=== PATIENT | female | born 1990 | race Caucasian/White ===

== ENCOUNTER 2017-11-02 13:17 | Emergency (ER) | payer MEDICARE, MEDICAID ==
[2017-11-02] MEDS ORDERED: HUMULIN R 100 UNIT/ML VIAL SC ONE (13:18)
--- NOTE | 2017-11-02 13:42 | Emergency Department Record ---
History of Present Illness - General Chief Complaint: Difficulty Breathing Stated Complaint: JANIS Time Seen by Provider: 11/02/17 13:24 Source: Patient Mode of Arrival: EMS - History of Present Illness Initial Comments: sahra SOB this am and and she developed anterior lower leg pain last night. 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 primary is Dr. Parker. Patient said she wants to go to [facility]. Patient denies a cough and denies a sore throat and denies vomiting and diarrhea and denies dysuria. Patient denies sex in years - Related Data Home Medications Medication Instructions Recorded Confirmed Last Taken Alprazolam [Xanax] 1 mg PO ASDIR 11/02/17 11/02/17 Unknown Aspirin 81 mg PO DAILY 11/02/17 11/02/17 11/02/17 Clonidine HCl [Catapres] 0.2 mg PO BID 11/02/17 11/02/17 11/02/17 Cranberry Conc/Ascorbic Acid 1 each PO DAILY 11/02/17 11/02/17 11/02/17 13:40 [Cranberry 6,000 mg Softgel] Folic Acid 0.4 mg PO ASDIR 11/02/17 11/02/17 11/02/17 Furosemide [Lasix] 40 mg PO DAILY 11/02/17 11/02/17 11/02/17 Garlic 1,500 mg PO DAILY 11/02/17 11/02/17 11/02/17 Hydralazine HCl 50 mg PO DAILY 11/02/17 11/02/17 11/02/17 Hydrocodone/Acetaminophen [[place] 1 each PO ASDIR 11/02/17 11/02/17 Unknown 5-325 Tablet] Labetalol HCl 200 mg PO DAILY 11/02/17 11/02/17 11/02/17 Lisinopril [Zestril] 40 mg PO DAILY 11/02/17 11/02/17 11/02/17 Magnesium Oxide [Magnesium] 250 mg PO DAILY 11/02/17 11/02/17 11/02/17 Montelukast Sodium [Singulair] 10 mg PO QHS 11/02/17 11/02/17 11/01/17 Pantoprazole Sodium 40 mg PO DAILY 11/02/17 11/02/17 11/02/17 Warfarin Sodium [Coumadin] 5 mg PO DAILY 11/02/17 11/02/17 11/02/17 Zolpidem Tartrate [Ambien] 5 mg PO QHS 11/02/17 11/02/17 Unknown Allergies Allergy/AdvReac Type Severity Reaction Status Date / Time Penicillins Allergy HIVES Verified 11/02/17 13:25 Review of Systems Reviewed: No additional complaints except as noted below Constitutional: Reports: As per HPI. Denies: Chills, Fever, Malaise, Night sweats, Weakness, Weight change Eyes: Reports: As per HPI. Denies: Eye discharge, Eye pain, Photophobia, Vision change ENT: Reports: As per HPI. Denies: Congestion, Dental pain, Ear pain, Epistaxis , Hearing loss, Throat pain Respiratory: Reports: As per HPI, Dyspnea. Denies: Cough, Hemoptysis, Stridor, Wheezes Cardiovascular: Reports: As per HPI. Denies: Arrhythmia, Chest pain, Dyspnea on exertion, Edema, Murmurs, Orthopnea, Palpitations, Paroxysmal nocturnal dyspnea, Rheumatic Fever, Syncope Endocrine: Reports: As per HPI. Denies: Fatigue, Heat or cold intolerance, Polydipsia, Polyuria Gastrointestinal: Reports: As per HPI. Denies: Abdominal pain, Constipation, Diarrhea, Hematemesis, Hematochezia, Melena, Nausea, Vomiting Genitourinary: Reports: As per HPI. Denies: Abnormal menses, Discharge, Dyspareunia, Dysuria, Frequency, Hematuria, Incontinence, Retention, Urgency Musculoskeletal: Reports: As per HPI. Denies: Arthralgia, Back pain, Gout, Joint swelling, Myalgia, Neck pain Skin: Reports: As per HPI. Denies: Bruising, Change in color, Change in hair/ nails, Lesions, Pruritus, Rash Neurological: Reports: As per HPI. Denies: Abnormal gait, Confusion, Headache, Numbness, Paresthesias, Seizure, Tingling, Tremors, Vertigo, Weakness Psychiatric: Reports: As per HPI. Denies: Anxiety, Auditory hallucinations, Depression, Homicidal thoughts, Suicidal thoughts, Visual hallucinations Hematological/Lymphatic: Reports: As per HPI. 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 no activity x's 4 years) Hx Weakness: Yes (generalized) Comment:: many silent strokes - GI Hx GI Disorders: Yes Hx Reflux: Yes Hx Nausea/Vomiting: Yes (after dialysis) - Hx Genitourinary Disorders: Yes Hx Dialysis: Yes (3 times a week) Hx Renal Disease: Yes Comment:: 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 - ENDOCRINE Hx Endocrine Disorders: No - MUSCULOSKELETAL Hx Musculoskeletal Disorders: Yes Hx Fibromyalgia: Yes - PSYCH Hx Psych Problems: Yes Hx Anxiety: Yes Hx Depression: Yes - HEMATOLOGY/ONCOLOGY Hx Hematology/Oncology Disorders: Yes Hx Anemia: Yes 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) Hx Clotting Problems: Yes Comment:: phoresis and platelet infusion Family Medical History Family Hx Comment (NOT TO BE USED IN PLACE OF ITEMS BELOW): sister lupus and a sister with MS Hx Diabetes: Grandparents Hx Heart Disease: Father, Mother, Grandparents Physical Exam - General General Appearance: Alert, Oriented x3, Cooperative, Mild distress, Other ( slurred speech) - Head Head exam: Normal inspection - Eye Eye exam: Normal appearance, PERRL Pupils: Normal accommodation - ENT ENT exam: Normal exam, Mucous membranes moist, Normal external ear exam, Normal orophraynx, TM's normal bilaterally Ear exam: Normal external inspection. negative: External canal tenderness Nasal Exam: Normal inspection. negative: Discharge, Sinus tenderness Mouth exam: Normal external inspection, Tongue normal Teeth exam: Normal inspection. negative: Dental caries Throat exam: Normal inspection. negative: Tonsillar erythema, Tonsillar exudate - Neck Neck exam: Normal inspection, Full ROM. negative: Tenderness - Respiratory Respiratory exam: Normal lung sounds bilaterally. negative: Respiratory distress - Cardiovascular Cardiovascular Exam: Regular rate, Normal rhythm, Normal heart sounds - GI/Abdominal GI/Abdominal exam: Soft, Normal bowel sounds. negative: Tenderness - Rectal Rectal exam: Deferred - exam: Deferred - Extremities Extremities exam: Normal inspection, Full ROM, Normal capillary refill. negative: Tenderness - Back Back exam: Reports: Normal inspection, Full ROM. Denies: Muscle spasm, Rash noted, Tenderness - Neurological Neurological exam: Alert, Normal gait, Oriented X3, Reflexes normal - Psychiatric Psychiatric exam: Normal affect, Normal mood - Skin Skin exam: Dry, Intact, Normal color, Warm Course potassium 7.9 and K ekg normal - Reevaluation(s) Reevaluation #1: discussed casee with Dr. Warren and will transfer to [facility] via ambulance 11/02/17 15:47 Reevaluation #2: patient states she has a hemoglobin of 5.0, rectal exam neg for occult blood 11/02/17 15:58 Medical Decision Making - Data Complexity MDM Data: Labs Ordered and/or Reviewed (trop t 0.177. d dimer elevated , on coumadin therapy INR 1.7), X-Ray Ordered and/or Reviewed (lower leg xray neg) - Lab Data Result diagrams: 11/02/17 15:06 11/02/17 15:06 Disposition Clinical Impression: Hyperkalemia, Troponin level elevated, Blood disease, History of DVT (deep vein thrombosis), History of Coumadin therapy, D-dimer, elevated Renal failure (ARF), acute on chronic Qualifiers: Acute renal failure type: unspecified Chronic kidney disease stage: on chronic dialysis Qualified Code(s): N17.9 - Acute kidney failure, unspecified Anemia Qualifiers: Anemia type: unspecified type Qualified Code(s): D64.9 - Anemia, unspecified Disposition: Acute Care Hospital Transfer Condition: (3) Guarded Forms: Patient Portal Access Time of Disposition: 15:56 Quality - Quality Measures Quality Measures: N/A - Blood Pressure Screening Does Patient Have Any of the Following: No, Active Dx of HTN Blood Pressure Classification: Hypertensive Reading Systolic Measurement: 188 Diastolic Measurement: 129 Screening for High Blood Pressure: Patient Exclusion, Hx of HTN [G9744]
[2017-11-02 13:46] LABS: ARTERIAL BLD GAS O2 SATURATION 95.4 % (95-98); ARTERIAL BLOOD GAS BASE EXCESS -13.5 mmol/L (-2 - 3); ARTERIAL BLOOD GAS HCO3 10.8 mmol/L (18-23); ARTERIAL BLOOD GAS pH 7.37 (7.35-7.45); CARBOXYHEMOGLOBIN 2.6 % (0-1.5); METHEMOGLOBIN 0.4 % (0.0-1.5); O2 HEMOGLOBIN 92.5 % vol (94-99); TOTAL HEMOGLOBIN 5.3 g/dl (11.6-16)
[2017-11-02 13:55] LABS: ARTERIAL BLOOD GAS PCO2 19.2 mmHg (35-48)
[2017-11-02 13:56] LABS: ALLEN TEST PASS
[2017-11-02] MEDS ORDERED: HYDROMORPHONE HCL 2 MG/ML VIAL IVP ONE (14:58)
[2017-11-02 15:02] LABS: URINE APPEARANCE CLEAR; URINE BILIRUBIN NEGATIVE (NEGATIVE); URINE BLOOD NEGATIVE (NEGATIVE); URINE COLOR YELLOW; URINE KETONE NEGATIVE (NEGATIVE); URINE LEUKOCYTE ESTERASE NEGATIVE (NEGATIVE); URINE NITRITE NEGATIVE (NEGATIVE); URINE PROTEIN 300 mg/dL (NEGATIVE); URINE UROBILINOGEN 0.2 E.U./dL (0.20 - 1.00)
[2017-11-02 15:09] LABS: AMPHETAMINE SCREEN URINE NOT DETECTED; BARBITURATE SCREEN URINE NOT DETECTED; BENZODIAZEPINE SCREEN URINE DETECTED; COCAINE SCREEN URINE NOT DETECTED; METHADONE SCREEN URINE NOT DETECTED; METHAMPHETAMINE SCREEN NOT DETECTED; OPIATE SCREEN URINE DETECTED; OXYCODONE SCREEN URINE NOT DETECTED; PHENCYCLIDINE SCREEN URINE NOT DETECTED; PROPOXYPHENE SCREEN URINE NOT DETECTED; THC SCREEN URINE DETECTED; TRICYCLIC ANTIDEPRESSANT SCRN NOT DETECTED
[2017-11-02 15:15] LABS: HEMATOCRIT 18.5 % (35.0-47.0); MEAN CELL VOLUME 93.4 fl (81-97); MEAN CORPUSCULAR HGB CONC 31.4 g/dl (32-36); MEAN PLATELET VOLUME 10.5 fl (7.4-10.4); PLATELET COUNT 245 K/uL (130-400); RED BLOOD COUNT 1.98 M/uL (3.80-5.40); RED CELL DISTRIBUTION WIDTH 16.5 % (11.5-14.5); WHITE BLOOD COUNT W/O DIFF 5.9 K/uL (4.2-12.2)
[2017-11-02 15:18] LABS: MEAN CORPUSCULAR HEMOGLOBIN 29.2 pg (27-33)
[2017-11-02 15:27] LABS: BILIRUBIN,TOTAL 0.5 mg/dL (0.2-1.0); CREATININE 13.8 mg/dL (0.5-0.9)
[2017-11-02] MEDS ORDERED: HYDRALAZINE HCL 25 MG TABLET PO ONE (15:27)
[2017-11-02 15:28] LABS: TOTAL PROTEIN 6.1 g/dL (6.6-8.7)
[2017-11-02 15:29] LABS: INR 1.7; PARTIAL THROMBOPLASTIN TIME 55.7 SECONDS (24.5-39.1); PROTHROMBIN TIME (PATIENT) 18.9 SECONDS (9.5-12.1)
[2017-11-02 15:32] LABS: ALB/GLOB RATIO 1.3 (1.1-1.8); ALBUMIN 3.5 g/dL (4.0-5.0)
[2017-11-02 15:34] LABS: ANISOCYTOSIS 1+; HYPOCHROMIA 2+; PLATELET ESTIMATE NORMAL (NORMAL)
[2017-11-02] MEDS ORDERED: SPS 15 GM/60 ML PO ONE (15:35)
[2017-11-02] MEDS ORDERED: DEXTROSE 50 % IVP 50 ML DISP.SYRIN IVP ONE (15:45)
[2017-11-02] MEDS ORDERED: HUMULIN R 100 UNIT/ML VIAL IV ONE (15:45)
[2017-11-02] MEDS ORDERED: CALCIUM GLUCONATE 100 MG in 0.9 % SODIUM CHLORIDE 100ML 100 ML IV ONE (15:45)
[2017-11-02 16:03] LABS: HEMOGLOBIN 5.8 gm/dl (11.6-16.0)
[2017-11-02 16:12] LABS: ABO GROUP B; ANTIBODY SCREEN NEGATIVE (NEGATIVE); RH TYPE POSITIVE
--- NOTE | 2017-11-03 09:29 | RADIOLOGY REPORT ---
EXAM: LEFT TIBIA AND FIBULA HISTORY: BRUISING IN THE ANTERIOR LEFT LEG. NO KNOWN INJURY. TECHNIQUE: AP and lateral views of the left tibia and fibula were obtained. Comparison: None. Encounter: Not applicable. FINDINGS: The bones are normal in appearance. There is no acute fracture or dislocation. There is no radiopaque foreign body or soft tissue air. IMPRESSION: NEGATIVE LEFT TIBIA AND FIBULA. JOB NUMBER: [id number] MTDD
--- NOTE | 2017-11-03 09:32 | RADIOLOGY REPORT ---
EXAM: CHEST, TWO VIEWS HISTORY: SHORTNESS OF BREATH TODAY. KNOWN RENAL FAILURE. TECHNIQUE: AP and lateral upright views of the chest were obtained. Comparison: None. FINDINGS: A dialysis catheter is in place on the right. The heart is enlarged. There is pulmonary vascular congestion and bilateral pulmonary infiltrates. There is minor blunting of the costophrenic angles consistent with small effusions. There is no pneumothorax. The bones appear intact. IMPRESSION: CARDIOMEGALY WITH PULMONARY VASCULAR CONGESTION, BILATERAL PULMONARY INFILTRATES , AND SMALL BILATERAL PLEURAL EFFUSIONS CONSISTENT WITH DEVELOPING CHF. [facility]BER: [id number] [facility]
== END 2017-11-02 16:49 | disposition short-term general hospital (02) ==
LOC: ER 13:17
DX: I13.2 Hypertensive heart and chronic kidney disease with heart failure and with stage 5 chronic kidney disease, or end stage renal disease (principal); N18.6 End stage renal disease; N17.9 Acute kidney failure, unspecified; R79.89 Other specified abnormal findings of blood chemistry; E87.6 Hypokalemia; D64.9 Anemia, unspecified; I50.9 Heart failure, unspecified; Z99.2 Dependence on renal dialysis; Z86.718 Personal history of other venous thrombosis and embolism; Z79.01 Long term (current) use of anticoagulants; F17.210 Nicotine dependence, cigarettes, uncomplicated
CPT/HCPCS: 99285 ×2; 96365; 96375; 85730; 85610; 82375; 80053; 81003; 82803; 81025; 82272; 80305; 84484; 85379; 85027; 86900; 86901; 86850; 71046; 73590; 36600; 93005; 93010; J1815; J1170

== ENCOUNTER 2017-11-11 13:03 | Emergency (ER) | payer MEDICARE, MEDICAID ==
[2017-11-11] MEDS ORDERED: HUMULIN R 100 UNIT/ML VIAL SC ONE (13:04)
--- NOTE | 2017-11-11 13:14 | Emergency Department Record ---
History of Present Illness - General Chief Complaint: Shortness of breath Stated Complaint: SHORTNESS OF BREATH Time Seen by Provider: 11/11/17 13:04 Source: Patient Mode of Arrival: Ambulatory Limitations: No limitations - History of Present Illness Initial Comments: 27 yo female with ESRD on dialysis presents with shortness of breath. She states her last dialysis was on Tuesday and was only a partial run. She did not go Tuesday because the lines at [facility] were too long. She feels puffy and short of breath. She presented on 11/02/17 with similar symptoms and was found to be hyperkalemic and anemic. Her renal specialist is at [facility]. MD Complaint: Shortness of breath -: Days(s) Severity: Moderate Quality: Other Consistency: Constant Improves With: Nothing Worsens With: Other (Missing dialysis several times) Known History Of: Other (ESRD) Context: Other - Related Data Allergies Allergy/AdvReac Type Severity Reaction Status Date / Time Penicillins Allergy HIVES Verified 11/11/17 13:13 Review of Systems Constitutional: Denies: Chills, Fever, Malaise, Weakness Eyes: Denies: Eye discharge ENT: Denies: Congestion, Throat pain Respiratory: Reports: Dyspnea Cardiovascular: Denies: Chest pain, Palpitations, Syncope Endocrine: Reports: Fatigue Gastrointestinal: Denies: Abdominal pain, Diarrhea, Nausea, Vomiting Genitourinary: Denies: Discharge, Dysuria Musculoskeletal: Denies: Arthralgia, Back pain, Myalgia Skin: Reports: Rash (chronic skin changes). Denies: Bruising, Change in color Neurological: Reports: Weakness. 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 CVA 2006 - NEURO Hx Neuro Disorders: Yes Hx Dizziness: Yes (after dialysis) Hx Seizures: Yes (grand mal on meds no activity x's 4 years) Hx Weakness: Yes (generalized) Comment:: many silent strokes - GI Hx GI Disorders: Yes Hx Reflux: Yes Hx Nausea/Vomiting: Yes (after dialysis) - Hx Genitourinary Disorders: Yes Hx Dialysis: Yes (3 times a week) Hx Renal Disease: Yes Comment:: 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 - ENDOCRINE Hx Endocrine Disorders: No - MUSCULOSKELETAL Hx Musculoskeletal Disorders: Yes Hx Fibromyalgia: Yes - PSYCH Hx Psych Problems: Yes Hx Anxiety: Yes Hx Depression: Yes - HEMATOLOGY/ONCOLOGY Hx Hematology/Oncology Disorders: Yes Hx Anemia: Yes 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 negative: Conjunctival injection - ENT ENT exam: Normal exam Ear exam: Normal external inspection Nasal Exam: Normal inspection Mouth exam: Normal external inspection - Neck Neck exam: Normal inspection - Respiratory Respiratory exam: Decreased breath sounds, Rales. negative: Normal lung sounds bilaterally, Respiratory distress - Cardiovascular Cardiovascular Exam: Regular rate, Normal rhythm, Normal heart sounds - GI/Abdominal GI/Abdominal exam: Soft. negative: Tenderness - Rectal Rectal exam: Deferred - exam: Deferred - Extremities Extremities exam: Pedal edema. negative: Joint swelling - Back Back exam: Reports: Normal inspection, Full ROM. Denies: Muscle spasm, Rash noted, Tenderness - Neurological Neurological exam: Alert, Normal gait, Oriented X3 - Psychiatric Psychiatric exam: Normal affect, Normal mood - Skin Skin exam: Other (scabs on the face) Course - Reevaluation(s) Reevaluation #1: EKG NSR rate 56, intervals Qtc 463, ST NS changes, axis normal 11/11/17 13:15 11/11/17 13:55 The CBC was reviewed The Hgb is 6.5 (prior was 5.8 on 11/02/17) 11/11/17 13:56 11/11/17 14:13 The INR was reviewed. 1.3 The lab was contacted. The K is 7.7 11/11/17 14:14 CXR demonstrated pulmonary vascular congestion. 11/11/17 14:18 Insulin, glucose, NaHCO3, Calcium Gluconate ordered One Call at [facility] for Nephrology and EM High dose Albuterol ordered and Laxis 11/11/17 14:21 AG is 26 HCO3 is 12 BUN 170 CR 10.3 11/11/17 14:27 Dr Balderrama of nephrology accepts the patient for transfer for emergency dialysis that is not offered at [facility] Dr Marinelli of the ED accepts the patient for transfer EMS will be contacted after stabilizing medications given 11/11/17 Medical Decision Making - Lab Data Result diagrams: 11/11/17 13:23 11/11/17 13:23 Critical Care Time Critical Care Time: Yes Total Critical Care Time: 85 Disposition Disposition: Transfer Clinical Impression: Anemia, Renal failure (ARF), acute on chronic, Hyperkalemia Disposition: Acute Care Hospital Transfer Transfer To: [facility] Reason For Transfer: ESRD,Hyperkalemia,volume overload Accepting Physician: Isis Time Discussed w/Accepting Physician: 14:25 Condition: (5) Critical Forms: Patient Portal Access Time of Disposition: 17:40 Quality - Quality Measures Quality Measures: N/A - Blood Pressure Screening Does Patient Have Any of the Following: Active Dx of HTN Blood Pressure Classification: Hypertensive Reading Systolic Measurement: 199 Diastolic Measurement: 133 Screening for High Blood Pressure: Patient Exclusion, Hx of HTN [G9744]
[2017-11-11 13:38] LABS: HEMATOCRIT 20.2 % (35.0-47.0); MEAN CELL VOLUME 92.2 fl (81-97); MEAN CORPUSCULAR HGB CONC 32.2 g/dl (32-36); MEAN PLATELET VOLUME 10.2 fl (7.4-10.4); PLATELET COUNT 216 K/uL (130-400); RED BLOOD COUNT 2.19 M/uL (3.80-5.40); RED CELL DISTRIBUTION WIDTH 15.6 % (11.5-14.5); WHITE BLOOD COUNT W/O DIFF 6.5 K/uL (4.2-12.2)
[2017-11-11 13:43] LABS: MEAN CORPUSCULAR HEMOGLOBIN 29.6 pg (27-33)
[2017-11-11 13:46] LABS: HEMOGLOBIN 6.5 gm/dl (11.6-16.0)
[2017-11-11 13:50] LABS: INR 1.3; PARTIAL THROMBOPLASTIN TIME 43.8 SECONDS (24.5-39.1); PROTHROMBIN TIME (PATIENT) 14.1 SECONDS (9.5-12.1)
[2017-11-11 13:52] LABS: CREATININE 10.6 mg/dL (0.5-0.9)
[2017-11-11] MEDS ORDERED: SODIUM BICARBONATE 50MEQ SYRINGE IVP ONE (14:14)
[2017-11-11] MEDS ORDERED: HUMULIN R 100 UNIT/ML VIAL IV ONE (14:14)
[2017-11-11] MEDS ORDERED: CALCIUM GLUCONATE 100 MG in 0.9 % SODIUM CHLORIDE 100ML 100 ML IV ONE (14:15)
[2017-11-11] MEDS ORDERED: FUROSEMIDE IV 40MG/4ML VIAL IVP ONE (14:27)
[2017-11-11] MEDS: DEXTROSE 50 % IVP 50 ML DISP.SYRIN IVP ONE ×2 (14:36→14:44)
[2017-11-11] MEDS: ALBUTEROL SULFATE (0.083%) 2.5 MG/3 ML NEB INH SCH ×2 (14:40→15:02)
[2017-11-11 15:00] LABS: ABO GROUP B; RH TYPE POSITIVE
[2017-11-11 15:01] LABS: ANTIBODY SCREEN NEGATIVE (NEGATIVE)
[2017-11-11] MEDS ORDERED: ALBUTEROL SULFATE (0.083%) 2.5 MG/3 ML NEB INH SCH (15:15)
[2017-11-11] MEDS ORDERED: SPS 15 GM/60 ML PO ONE (15:16)
--- NOTE | 2017-11-13 10:08 | RADIOLOGY REPORT ---
EXAM: CHEST 1 VIEW HISTORY: DYSPNEA. MISSED DIALYSIS APPOINTMENT THIS WEEK. TECHNIQUE: AP upright portable. COMPARISON: Two-view chest 11/02/17. FINDINGS: The right-sided multilumen venous catheter remains in place with no pneumothorax evident. Cardiomegaly again seen along with pulmonary venous hypertension and interstitial blurring as well as blunting of the costophrenic angles. These findings likely represent CHF/pulmonary edema currently and follow -up films are suggested, preferably upright PA and lateral, which clinically feasible. IMPRESSION: 1. FINDINGS CONSISTENT WITH CHF/PULMONARY EDEMA. 2. RIGHT-SIDED VENOUS CATHETER REMAINS IN PLACE, BEFORE. JOB NUMBER: [id number] MTDD
== END 2017-11-11 15:25 | disposition short-term general hospital (02) ==
LOC: ER 13:03
DX: I13.2 Hypertensive heart and chronic kidney disease with heart failure and with stage 5 chronic kidney disease, or end stage renal disease (principal); N18.6 End stage renal disease; I50.9 Heart failure, unspecified; N17.9 Acute kidney failure, unspecified; D64.9 Anemia, unspecified; E87.5 Hyperkalemia; R06.00 Dyspnea, unspecified; F17.210 Nicotine dependence, cigarettes, uncomplicated; Z99.2 Dependence on renal dialysis
CPT/HCPCS: 99291 ×2; 96365; 96375; 99292; 85730; 85610; 80048; 85027; 86900; 86901; 86850; 71045; 94640; 94644; 93005; 93010; J1815; J1940; J7613